=== PATIENT | male | born 1975 | race Two or more races ===

== ENCOUNTER 2018-11-12 02:31 | Emergency (ER) | payer MEDICAID ==
[~2018-11-12] VITALS: Ht 177.8 cm; Wt 60.0 kg
--- NOTE | 2018-11-12 02:43 | NUR ---
PT WAS FOUND ON THE SIDE OF THE ROAD. PT SMELLS OF ETOH. PT REPORTS HE HAS BEEN DRINKING. PT HAS A HOTEL GAMING ON HIM BUT CAN NOT ANSWER WHERE IS HOTEL IS. PT IS ONLY A&OX1 TO SELF. VS STABLE. PT RESTING ON GURNEY. REGULAR RESP. CALL LIGHT IN PLACE. WILL CONTINUE TO MONITOR.
--- NOTE | 2018-11-12 04:25 | NUR ---
PT RESTING IN ROOM. NO ACUTE DISTRESS NOTED. CALL LIGHT IN PLACE WILL CONTINUE TO MONITOR.
--- NOTE | 2018-11-12 05:30 | NUR ---
PT RESTING IN ROOM. NO ACUTE DISTRESS NOTED. CALL LIGHT IN PLACE. WILL CONTINUE TO MONITOR.
--- NOTE | 2018-11-12 06:58 | NUR ---
REPORT GIVEN TO MANDI ESCUDERO
--- NOTE | 2018-11-12 06:59 | NUR ---
BEDSIDE REPORT FROM MANDI RENDON, PT CARE ASSUMED AT THIS TIME.
--- NOTE | 2018-11-12 08:35 | NUR ---
BREAKFAST TRAY DELIVERED, PT ASLEEP IN BED, WCTM.
[2018-11-12 10:04] VITALS: BP 113/54
== END 2018-11-12 10:06 | disposition home or self-care (01) ==
LOC: ED 09:00 → MERGE 09:00 → ED 10:06
DX: F10.220 Alcohol dependence with intoxication, uncomplicated (principal); Z72.9 Problem related to lifestyle, unspecified; Z63.8 Other specified problems related to primary support group; Z75.9 Unspecified problem related to medical facilities and other health care; Y90.9 Presence of alcohol in blood, level not specified
CPT/HCPCS: 99283